=== PATIENT | female | born 1950 | race Caucasian/White ===

== ENCOUNTER 2016-11-23 20:39 | Inpatient (IN) | payer OTHER, MEDICAID ==
[~2016-11-23] VITALS: Ht 160 cm; Wt 83.0 kg
[2016-11-23 20:39] VITALS: BP_SYST 112
[2016-11-23] MEDS ORDERED: FERR-57 PO (21:22)
[2016-11-23] MEDS ORDERED: MAGN400O4 PO (21:22)
[2016-11-23] MEDS ORDERED: NA P118E RC (21:22)
[2016-11-23] MEDS ORDERED: ASCO500T20 PO (21:22)
[2016-11-23] MEDS ORDERED: LINA5TAB2 PO (21:22)
[2016-11-23] MEDS ORDERED: ACET-2165 PO (21:22)
[2016-11-23] MEDS ORDERED: NOR10 PO (21:22)
[2016-11-23] MEDS ORDERED: DULR10 RC (21:22)
[2016-11-23] MEDS ORDERED: LEVO25TA7 PO (21:22)
[2016-11-23] MEDS ORDERED: SSNOVOLOG SUBCUT (21:22)
[2016-11-23] MEDS ORDERED: INSULIN REGULAR, HUMAN 100 UNITS/ML, 10 ML VIAL (novoLIN R) SUBCUT PRN (22:00)
[2016-11-23 22:22] VITALS: BP_SYST 123
[2016-11-24 01:20] VITALS: BP_SYST 106
[2016-11-24 04:53] VITALS: BP_SYST 101
[2016-11-24] MEDS ORDERED: ZOLPIDEM TARTRATE 5 MG TABLET PO PRN (07:15)
[2016-11-24] MEDS ORDERED: ACETAMINOPHEN 325 MG TABLET PO PRN (07:15)
[2016-11-24] MEDS ORDERED: POTASSIUM CHLORIDE 10 MEQ TAB.PRT.SR PO PRN (07:15)
[2016-11-24] MEDS ORDERED: DOCUSATE SODIUM 100 MG CAPSULE PO PRN (07:15)
[2016-11-24] MEDS ORDERED: LORazepam 2 MG/ML VIAL IVP PRN (07:15)
[2016-11-24] MEDS ORDERED: ONDANSETRON HCL 4 MG/2 ML VIAL IVP PRN (07:15)
[2016-11-24] MEDS ORDERED: MAGNESIUM SULFATE 50 ML IV PRN (07:15)
[2016-11-24] MEDS ORDERED: MORPHINE 2 MG/ML INJ. SYRINGE IVP PRN (07:15)
[2016-11-24 08:00] VITALS: BP_SYST 102
[2016-11-24 09:24] LABS: MONOCYTES # (AUTO) 0.7 K/uL (0.0-1.0)
[2016-11-24 09:32] LABS: BASOPHILS % (AUTO) 0.3 % (0.0-2.0); EOSINOPHILS # (AUTO) 0.4 K/uL (0.0-0.4); EOSINOPHILS % (AUTO) 2.5 % (0.0-4.0); HEMATOCRIT 23.9 % (36-48); HEMOGLOBIN 7.9 g/dL (12.0-16.0); LYMPHOCYTES % (AUTO) 13.3 % (20.5-51.5); MEAN CORPUSCULAR HEMOGLOBIN 28 pg (27-31); MEAN CORPUSCULAR HGB CONC 33 % (32-36); MEAN CORPUSCULAR VOLUME 84 fL (79.0-98.0); MONOCYTES % (AUTO) 4.8 % (1.7-9.3); NEUTROPHILS # (AUTO) 12.2 K/uL (1.8-7.7); NEUTROPHILS % (AUTO) 79.1 % (40.0-70.0); PLATELET COUNT (AUTO) 374 K/uL (130-430); RED BLOOD CELL COUNT(AUTO) 2.86 MIL/uL (4.2-6.2); RED CELL DISTRIBUTION WIDTH 14.9 % (9.0-15.0); WHITE BLOOD COUNT (AUTO) 15.3 K/uL (4.8-10.8)
[2016-11-24 09:33] LABS: ALBUMIN 2.5 g/dL (3.4-4.8); CALCIUM 8.3 mg/dL (8.4-11.0); CREATININE 4.07 mg/dL (0.55-1.30); POTASSIUM 3.2 mmol/L (3.5-5.1); TOTAL BILIRUBIN 0.2 mg/dL (0.0-1.0); TOTAL PROTEIN, SERUM 7.5 g/dL (6.4-8.3)
[2016-11-24 12:29] VITALS: BP_SYST 101
[2016-11-24 14:14] LABS: INR 0.9 (0.8-1.2); PROTHROMBIN TIME 10.1 SECS (9.5-12.5)
[2016-11-24 16:16] VITALS: BP_SYST 122
[2016-11-24 20:01] VITALS: BP_SYST 108
[2016-11-24 20:36] LABS: BILIRUBIN,URINE NEGATIVE (NEGATIVE); BLOOD, URINE 1+ (NEGATIVE); CLARITY/URINE SL CLOUDY (CLEAR); COLOR,URINE YELLOW (YELLOW); GLUCOSE,URINE NEGATIVE (NEGATIVE); KETONES,URINE NEGATIVE (NEGATIVE); LEUKOCYTE ESTERASE ,URINE 3+ (NEGATIVE); NITRITE, URINE NEGATIVE (NEGATIVE); PH,URINE 5.5 (5.0-8.0); PROTEIN URINE 1+ (NEGATIVE); UROBILINOGEN,URINE 0.2 (0.2-1.0)
[2016-11-24 22:35] LABS: BACTERIA,URINE MANY /HPF (None Seen); WBC,URINE 50-80 /HPF (0-3)
[2016-11-24 22:36] LABS: MUCUS,URINE None Seen /LPF (None Seen); URINE AMORPHOUS URATE 3+ /HPF (None Seen)
[2016-11-25 01:29] VITALS: BP_SYST 132
[2016-11-25 06:20] VITALS: BP_SYST 137
[2016-11-25 06:26] LABS: BASOPHILS % (AUTO) 0.3 % (0.0-2.0); EOSINOPHILS # (AUTO) 0.4 K/uL (0.0-0.4); HEMATOCRIT 24.5 % (36-48); HEMOGLOBIN 8.1 g/dL (12.0-16.0); LYMPHOCYTES # (AUTO) 2.3 K/uL (1.0-5.5); LYMPHOCYTES % (AUTO) 16.1 % (20.5-51.5); MEAN CORPUSCULAR HEMOGLOBIN 28 pg (27-31); MEAN CORPUSCULAR HGB CONC 33 % (32-36); MEAN CORPUSCULAR VOLUME 84 fL (79.0-98.0); MONOCYTES # (AUTO) 0.6 K/uL (0.0-1.0); MONOCYTES % (AUTO) 4.1 % (1.7-9.3); NEUTROPHILS # (AUTO) 11.1 K/uL (1.8-7.7); NEUTROPHILS % (AUTO) 76.5 % (40.0-70.0); PLATELET COUNT (AUTO) 400 K/uL (130-430); RED BLOOD CELL COUNT(AUTO) 2.91 MIL/uL (4.2-6.2); RED CELL DISTRIBUTION WIDTH 15.1 % (9.0-15.0); WHITE BLOOD COUNT (AUTO) 14.4 K/uL (4.8-10.8)
[2016-11-25 06:32] LABS: CALCIUM 8.5 mg/dL (8.4-11.0); CREATININE 3.96 mg/dL (0.55-1.30); POTASSIUM 3.6 mmol/L (3.5-5.1)
[2016-11-25 08:00] VITALS: BP_SYST 130
[2016-11-25] MEDS: cefTRIAXone 1 GM in D5W 50 ML IV SCH (10:38)
[2016-11-25] MEDS: NACL 0.9% 1,000 ML IV SCH (10:38)
[2016-11-25 12:00] VITALS: BP_SYST 115
[2016-11-25 16:00] VITALS: BP_SYST 105
[2016-11-25 20:00] VITALS: BP_SYST 112
[2016-11-26] VITALS: BP_SYST 103
[2016-11-26] MEDS: NACL 0.9% 1,000 ML IV SCH ×2 (02:38→23:00)
[2016-11-26 04:00] VITALS: BP_SYST 106
[2016-11-26 06:48] LABS: BASOPHILS % (AUTO) 0.2 % (0.0-2.0); EOSINOPHILS # (AUTO) 0.4 K/uL (0.0-0.4); EOSINOPHILS % (AUTO) 3.1 % (0.0-4.0); HEMATOCRIT 24.5 % (36-48); HEMOGLOBIN 8.1 g/dL (12.0-16.0); LYMPHOCYTES # (AUTO) 2.2 K/uL (1.0-5.5); MEAN CORPUSCULAR HEMOGLOBIN 28 pg (27-31); MEAN CORPUSCULAR HGB CONC 33 % (32-36); MEAN CORPUSCULAR VOLUME 84 fL (79.0-98.0); MONOCYTES # (AUTO) 0.4 K/uL (0.0-1.0); MONOCYTES % (AUTO) 3.4 % (1.7-9.3); NEUTROPHILS # (AUTO) 8.5 K/uL (1.8-7.7); NEUTROPHILS % (AUTO) 74.3 % (40.0-70.0); PLATELET COUNT (AUTO) 450 K/uL (130-430); RED BLOOD CELL COUNT(AUTO) 2.92 MIL/uL (4.2-6.2); RED CELL DISTRIBUTION WIDTH 14.7 % (9.0-15.0); WHITE BLOOD COUNT (AUTO) 11.5 K/uL (4.8-10.8)
[2016-11-26 06:58] LABS: CALCIUM 8.3 mg/dL (8.4-11.0); CREATININE 3.77 mg/dL (0.55-1.30); POTASSIUM 3.7 mmol/L (3.5-5.1)
[2016-11-26 08:00] VITALS: BP_SYST 130
[2016-11-26] MEDS: cefTRIAXone 1 GM in D5W 50 ML IV SCH (10:57)
[2016-11-26 12:00] VITALS: BP_SYST 123
[2016-11-26 18:49] VITALS: BP_SYST 121
[2016-11-26 20:00] VITALS: BP_SYST 106
[2016-11-27 00:24] VITALS: BP_SYST 95
[2016-11-27 04:47] VITALS: BP_SYST 101
[2016-11-27 06:45] LABS: BASOPHILS % (AUTO) 0.3 % (0.0-2.0); CALCIUM 8.2 mg/dL (8.4-11.0); CREATININE 3.34 mg/dL (0.55-1.30); EOSINOPHILS # (AUTO) 0.3 K/uL (0.0-0.4); EOSINOPHILS % (AUTO) 3.4 % (0.0-4.0); HEMOGLOBIN 7.7 g/dL (12.0-16.0); LYMPHOCYTES # (AUTO) 2.2 K/uL (1.0-5.5); LYMPHOCYTES % (AUTO) 24.4 % (20.5-51.5); MEAN CORPUSCULAR HEMOGLOBIN 28 pg (27-31); MEAN CORPUSCULAR HGB CONC 33 % (32-36); MEAN CORPUSCULAR VOLUME 83 fL (79.0-98.0); MONOCYTES # (AUTO) 0.4 K/uL (0.0-1.0); MONOCYTES % (AUTO) 4.5 % (1.7-9.3); NEUTROPHILS # (AUTO) 6.1 K/uL (1.8-7.7); NEUTROPHILS % (AUTO) 67.4 % (40.0-70.0); PLATELET COUNT (AUTO) 407 K/uL (130-430); POTASSIUM 3.9 mmol/L (3.5-5.1); RED BLOOD CELL COUNT(AUTO) 2.76 MIL/uL (4.2-6.2); RED CELL DISTRIBUTION WIDTH 14.8 % (9.0-15.0)
[2016-11-27] MEDS: NACL 0.9% 1,000 ML IV SCH (08:11)
[2016-11-27 08:15] VITALS: BP_SYST 121
[2016-11-27] MEDS: cefTRIAXone 1 GM in D5W 50 ML IV SCH (09:45)
[2016-11-27 12:05] VITALS: BP_SYST 127
[2016-11-27 15:10] VITALS: BP_SYST 127
[2016-11-27 16:21] VITALS: BP_SYST 142
== END 2016-11-27 16:35 | DRG 698 ==
LOC: SED 20:39 → SMU 21:59
PROVIDERS: ADMIT General Practice; ATTEND General Practice
DX: N99.522 Malfunction of incontinent external stoma of urinary tract (principal); N17.0 Acute kidney failure with tubular necrosis; N13.30 Unspecified hydronephrosis; N39.0 Urinary tract infection, site not specified; D63.8 Anemia in other chronic diseases classified elsewhere; N18.9 Chronic kidney disease, unspecified; I12.9 Hypertensive chronic kidney disease with stage 1 through stage 4 chronic kidney disease, or unspecified chronic kidney disease; J44.9 Chronic obstructive pulmonary disease, unspecified; K43.9 Ventral hernia without obstruction or gangrene; Y84.6 Urinary catheterization as the cause of abnormal reaction of the patient, or of later complication, without mention of misadventure at the time of the procedure; E11.22 Type 2 diabetes mellitus with diabetic chronic kidney disease; E03.9 Hypothyroidism, unspecified; Z85.51 Personal history of malignant neoplasm of bladder; Z90.6 Acquired absence of other parts of urinary tract; Z90.710 Acquired absence of both cervix and uterus; Z79.899 Other long term (current) drug therapy
CPT/HCPCS: 36415; 76770; 80048; 80053; 81000-TC; 82962; 83735-TC; 85025; 85610-TC; 85730-TC; 87081; 99285; J0696; J1815; J7030; J7060